=== PATIENT | female | born 1960 | race Caucasian/White ===

== ENCOUNTER 2019-11-14 10:07 | Emergency (ER) | payer OTHER, SELFPAY ==
[2019-11-14 10:16] VITALS: BP 148/76; PULSE 82; RESP 20; TEMP 36.4; O2SAT 100
--- NOTE | 2019-11-14 10:20 | ED.URI ---
HPI - URI/Sore Throat General Chief Complaint: Upper Respiratory Infection Stated Complaint: Ear pain/Sore Throat History of Present Illness HPI Narrative: This is a 59-year-old female that comes in complaining of left ear pain. Patient states she has a sore throat as well. Patient states she has taken Tylenol for her pain and symptoms denies any nausea vomiting diarrhea. Related Data Home Medications Medication Instructions Recorded Confirmed fluticasone propion-salmeterol 1 puff INHALATION BID 11/14/19 11/14/19 insulin glargine [Basaglar KwikPen 60 unit SUBCUT DAILY 11/14/19 11/14/19 U-100 Insulin] insulin lispro [Admelog U-100 1 sliding scale dose SUBCUT 11/14/19 11/14/19 Insulin lispro] USEASDIRECTD oxycodone-acetaminophen [Percocet] 1 tablet PO Q6H PRN 11/14/19 11/14/19 Allergies Allergy/AdvReac Type Severity Reaction Status Date / Time No Known Allergies Allergy Verified 11/14/19 10:27 Review of Systems Review of Systems: Narrative: CONSTITUTIONAL: Denies fever, chills, or sweats. EYES: Denies visual changes, redness, or discharge. ENT: Denies rhinorrhea, congestion, sore throat, or positive otalgia. CARDIOVASCULAR:Denies chest pain, palpitations, or edema. RESPIRATORY: Denies cough or dyspnea. GASTROINTESTINAL: Denies abdominal pain, nausea, vomiting, or diarrhea. GENITOURINARY: Denies dysuria or hematuria. SKIN:[Denies rash or itching. MUSCULOSKELETAL:Denies back pain, joint pain, or myalgia. NEUROLOGIC: Denies headache, numbness, or weakness. PSYCHIATRIC:Denies anxiety or depression PMFSH Comments At time as signature, I have reviewed and agree with nursing past medical, social, surgical and family history. Please see nursing chart for further information. There is no relevant family history pertinent to the presenting complaint. Exam Narrative: Exam Narrative: GENERAL:Well-appearing, well-nourished, and in no acute distress. HEAD:Normocephalic, atraumatic. EYES: PERRLA and EOMI. ENT: Nares clear, no rhinorrhea or epistaxis. Mucous membranes moist. Pharyngeal erythema erythema spots on the roof of the mouth right TM erythema and bulging NECK: Supple. CHEST: Clear to auscultation. No respiratory distress. HEART: Regular rate and rhythm. No murmur heard. Normal peripheral pulses. ABDOMEN: Soft, nontender, nondistended, normal active bowel sounds. EXTREMITIES: Normal range of motion. No edema. SKIN: Warm, dry, no rash. NEURO: No focal deficits. Alert and oriented x3. Course Vital Signs Vital signs: Vital Signs Temperature 97.5 F L 11/14/19 10:16 Pulse Rate 82 11/14/19 10:16 Respiratory Rate 20 11/14/19 10:16 Blood Pressure 148/76 H 11/14/19 10:16 Pulse Oximetry 100 11/14/19 10:16 Temperature 97.5 F L 11/14/19 10:16 Pulse Rate 82 11/14/19 10:16 Respiratory Rate 20 11/14/19 10:16 Blood Pressure 148/76 H 11/14/19 10:16 Pulse Oximetry 100 11/14/19 10:16 Discharge Plan Discharge Clinical Impression: Otitis media Qualifiers: Otitis media type: other nonsuppurative Chronicity: acute Laterality: right Recurrence: non-recurrent Qualified Code(s): H65.191 - Other acute nonsuppurative otitis media, right ear Pharyngitis Qualifiers: Pharyngitis/tonsillitis etiology: unspecified etiology Qualified Code(s): J02.9 - Acute pharyngitis, unspecified Patient Disposition: Home, Self-Care Condition: Stable Instructions: Antibiotic Form, Pharyngitis (ED) Additional Instructions: proceed with treating this is as a viral pharyngitis. Salt water gargles may alleviate some of your throat discomfort. Take Tylenol and/or ibuprofen per the package instructions for pain/fever. Go to the ER if your symptoms become worse of if ANY new symptoms develop Prescriptions: New amoxicillin 500 mg capsule 500 mg PO Q12H 10 Days Qty: 20 RF: 0 No Action insulin lispro [Admelog U-100 Insulin lispro] 100 unit/mL Solution 1 sliding scale dose SUBCUT USEA
== END 2019-11-14 10:35 | disposition home or self-care (01) ==
PROVIDERS: Emergency Provider Nurse Practitioner Family; PCP Family Medicine
DX: H65.191 Other acute nonsuppurative otitis media, right ear (principal); J02.9 Acute pharyngitis, unspecified; G25.81 Restless legs syndrome; I11.0 Hypertensive heart disease with heart failure; I50.9 Heart failure, unspecified; J44.9 Chronic obstructive pulmonary disease, unspecified; E11.9 Type 2 diabetes mellitus without complications; M19.90 Unspecified osteoarthritis, unspecified site
CPT/HCPCS: 99213; G0463

== ENCOUNTER 2021-01-10 18:20 | Emergency (ER) | payer MEDICARE, MEDICAID, SELFPAY ==
--- NOTE | 2021-01-10 18:27 | PC.NURSE ---
PT DECLINED ARSALAN WRAP AT THIS TIME
[2021-01-10 18:28] VITALS: BP 134/63; PULSE 92; RESP 22; TEMP 36.8; O2SAT 96
--- NOTE | 2021-01-10 18:28 | ED.URI ---
HPI - URI/Sore Throat General Chief Complaint: Upper Respiratory Infection Stated Complaint: tongue and mouth Time Seen by Provider: 01/10/21 18:28 Source: patient and RN notes reviewed History of Present Illness HPI Narrative: Patient is a 60-year-old female who presents the urgent care with complaints of sore throat, painful swallowing and sore tongue. Patient states that she has had some mild increase in shortness of breath on exertion and has been using her updraft treatments more frequently. Patient states that she has had this in the past and was diagnosed with thrush. Patient does have CHF and intermittently has issues with exacerbation. Patient states that I am not here to talk about my CHF and will go to the ER if I feel necessary . Patient is currently denying any shortness of breath or chest pain. No other acute complaints. No acute distress noted. Patient aware of the plan of care. Some parts of this dictation were generated by voice recognition software and may contain typographical and/or grammatical inaccuracies. Related Data Home Medications Medication Instructions Recorded Confirmed amitriptyline 100 mg PO HS 11/14/19 11/14/19 atorvastatin 40 mg PO DAILY 11/14/19 11/14/19 fluticasone propion-salmeterol 1 puff INHALATION BID 11/14/19 11/14/19 furosemide 20 mg PO DAILY 11/14/19 11/14/19 insulin glargine [Basaglar KwikPen 60 unit SUBCUT DAILY 11/14/19 11/14/19 U-100 Insulin] insulin lispro [Admelog U-100 1 sliding scale dose SUBCUT 11/14/19 11/14/19 Insulin lispro] USEASDIRECTD lisinopril 10 mg PO DAILY 11/14/19 11/14/19 oxycodone-acetaminophen [Percocet] 1 tablet PO Q6H PRN 11/14/19 11/14/19 ropinirole 5 mg PO BID 11/14/19 11/14/19 umeclidinium [Incruse Ellipta] 1 inh INHALATION DAILY 11/14/19 11/14/19 Allergies Allergy/AdvReac Type Severity Reaction Status Date / Time No Known Allergies Allergy Verified 01/10/21 18:23 Review of Systems Review of Systems: Narrative: CONSTITUTIONAL: Denies fever, chills, or sweats. EYES: Denies visual changes, redness, or discharge. ENT: Reports of sore throat, sore tongue and painful swallowing CARDIOVASCULAR: Denies chest pain, palpitations, or edema. RESPIRATORY: Denies cough or dyspnea. GASTROINTESTINAL: Denies abdominal pain, nausea, vomiting, or diarrhea. GENITOURINARY: Denies dysuria or hematuria. SKIN: Denies rash or itching. MUSCULOSKELETAL: Denies back pain, joint pain, or myalgia. NEUROLOGIC: Denies headache, numbness, or weakness. All other systems reviewed are negative, except as documented in HPI. PMFSH Comments At the time of my signature, I reviewed and agree with the nursing past medical, surgical, social, and family history. There is no relevant family history pertinent to the patient complaint. Exam Narrative: Exam Narrative: GENERAL: This is a well-nourished, well-developed patient, in no apparent distress. HEAD: normocephalic, atraumatic. EYES: PERRL. Sclera clear/white. Vision is grossly intact. EARS: External ears normal, auditory canals clear and without drainage, TMs normal without perforation. Hearing grossly intact. NOSE: External nose normal with no obvious nasal discharge, nares without redness, no rhinorrhea. THROAT: Mucous membranes moist. Moderate erythema noted to posterior oropharynx with scattered minimal plaque-like lesions to the inside of the buccal aspect of the mouth. Moderately erythemic and slightly edematous tongue NECK: Neck supple CARDIOVASCULAR: Regular rate and rhythm RESPIRATORY: Mild expiratory wheezes throughout SKIN: warm, intact with no suspicious lesions or rash, good texture and turgor. NEURO: awake, alert, and oriented to person, place and time. There were no obvious focal neurologic abnormalities. EXTREMITIES: )Unable to assess edema to the left lower extremity due to a booted foot for ruptured tendons ). 3+ pitting edema to the right lower extremity Course Vital Signs Vital signs: Vital Signs Tempera
[2021-01-10 19:12] VITALS: BP 134/63; PULSE 92; RESP 22; TEMP 36.8; O2SAT 96
== END 2021-01-10 18:54 | disposition home or self-care (01) ==
PROVIDERS: Emergency Provider Nurse Practitioner Family; PCP Family Medicine
DX: B37.0 Candidal stomatitis (principal); G25.81 Restless legs syndrome; I11.0 Hypertensive heart disease with heart failure; I50.9 Heart failure, unspecified; J44.9 Chronic obstructive pulmonary disease, unspecified; E11.9 Type 2 diabetes mellitus without complications
CPT/HCPCS: 99213; G0463